=== PATIENT | female | born 1975 | race Caucasian/White ===

== ENCOUNTER → 2018-11-09 16:36 | Outpatient (CLI) | payer OTHER, SELFPAY ==
[2018-11-09 18:05] LABS: Basophil# 0.02 X10^3/uL; Basophil% 0.3 % (0-1); Eosinophil# 0.16 X10^3/uL; Eosinophils% 2.4 % (0-5); Hematocrit 36.5 % (37-47); Hemoglobin 11.5 g/dl (12.0-15.0); Lymphocyte % 27.3 % (19-41); Mean Corp Hgb Conc 31.5 g/gl (32-36); Mean Corpuscular Hgb 26.6 pg (27.0-32.0); Mean Corpuscular Volume 84.5 fL (81-99); Mean Platelet Vol. 12.2 fl (6.2-12.0); Monocyte# 0.62 X10^3/uL; Monocyte% 9.4 % (0-10); Neutrophil # 3.99 X10^3/uL (2.7-7.7); Neutrophil % 60.4 % (47-70); Platelet Count 273 K/mm3 (150-450); RBC Distribution Width CV 15.6 % (11.6-14.6); RBC Distribution Width SD 47.5 fl (35.1-43.9); Red Blood Count 4.32 M/mm3 (4.2-5.4); White Blood Count 6.6 K/mm3 (4.4-11.0)
[2018-11-09 18:11] LABS: POSITIVE COUNT NO; POSITIVE DIFFERENTIAL NO; POSITIVE MORPHOLOGY NO
[2018-11-09 18:29] LABS: Hemoglobin A1c 6.2 % (4.2-6.3)
[2018-11-09 18:38] LABS: AST(SGOT) 17 U/L (15-37); Alanine Aminotransfer ALT/SGPT 24 U/L (13-56); Albumin, Serum 3.6 g/dL (3.2-5.0); Alkaline Phosphatase 78 U/L (45-117); Anion Gap 9 (5-15); BUN 19 mg/dL (7-18); BUN/Creat Ratio 22.6 RATIO (10-20); Calcium,Total 8.5 mg/dL (8.5-10.1); Chloride 105 mmol/L (98-107); Cholesterol 200 mg/dL (200); Creatinine, Serum 0.84 mg/dL (0.55-1.02); EST Glomerular Filtration Rate 79 mL/min (>60); Est Glom Filt Rate - Afr Amer 96 mL/min (>60); Globulin 3.5 g/dL (2.2-4.2); Glucose 102 mg/dL (74-106); High Density Lipoprotein 47 mg/dL; Potassium 3.9 mmol/L (3.5-5.1); Protein, Total 7.1 g/dL (6.4-8.2); Sodium Level 139 mmol/L (136-145); Thyroid Stim Hormone (TSH) 1.47 uIU/mL (0.358-3.74); Triglycerides 210 mg/dL; Very Low Density Lipoprotein 42 mg/dL (5-40)
== END ==
LOC: MFPLAB 16:41
PROVIDERS: Family Provider Family Medicine; PCP Family Medicine; Visit Provider Family Medicine
DX: E66.01 Morbid (severe) obesity due to excess calories (principal)
CPT/HCPCS: 36415; 80053; 80061; 83036; 84443; 85025

== ENCOUNTER → 2018-11-12 15:46 | Outpatient (CLI) | payer OTHER, SELFPAY ==
[2018-11-12 17:53] LABS: Vitamin B12 253 pg/mL (211-911)
[2018-11-12 17:57] LABS: Ferritin 5 ng/mL (8-252); Iron 34 ug/dL (50-170); Iron Binding Capacity,Total 421 ug/dL (250-450)
== END ==
LOC: MFPLAB 15:47
PROVIDERS: Family Provider Family Medicine; PCP Family Medicine; Visit Provider Family Medicine
DX: D64.9 Anemia, unspecified (principal)
CPT/HCPCS: 36415; 82607; 82728; 82746; 83540; 83550

== ENCOUNTER → 2019-01-03 | Outpatient (CLI) | payer OTHER, SELFPAY ==
[2019-01-03 17:59] LABS: Absolute Lymphocyte Count 1.88 X10^3/ul (0.83-4.51); Absolute Neutrophil Count 4.6 X10^3/uL (2.0-7.7); Basophil# 0.02 X10^3/uL; Basophil% 0.3 % (0-1); Eosinophil# 0.17 X10^3/uL; Eosinophils% 2.3 % (0-5); Hematocrit 36.7 % (37-47); Hemoglobin 11.4 g/dl (12.0-15.0); Lymphocyte # 1.88 X10^3/ul (4.0); Lymphocyte % 25.8 % (19-41); Mean Corp Hgb Conc 31.1 g/gl (32-36); Mean Corpuscular Hgb 26.7 pg (27.0-32.0); Mean Corpuscular Volume 85.9 fL (81-99); Mean Platelet Vol. 11.9 fl (6.2-12.0); Monocyte# 0.62 X10^3/uL; Monocyte% 8.5 % (0-10); POSITIVE COUNT NO; POSITIVE DIFFERENTIAL NO; POSITIVE MORPHOLOGY NO; Platelet Count 283 K/mm3 (150-450); Red Blood Count 4.27 M/mm3 (4.2-5.4); White Blood Count 7.3 K/mm3 (4.4-11.0)
[2019-01-03 18:34] LABS: Ferritin 5 ng/mL (8-252); Iron 33 ug/dL (50-170); Iron Binding Capacity,Total 403 ug/dL (250-450)
== END | disposition home or self-care (01) ==
LOC: MFPLAB 16:49
PROVIDERS: Family Provider Family Medicine; PCP Family Medicine; Referring Provider Family Medicine; Visit Provider Family Medicine
DX: D64.9 Anemia, unspecified (principal); E61.1 Iron deficiency
CPT/HCPCS: 36415; 82728; 83540; 83550; 85025

== ENCOUNTER → 2019-03-21 16:56 | Outpatient (CLI) | payer OTHER, SELFPAY ==
[2019-03-21 14:17] VITALS: BMI 39.6
[2019-03-27 11:21] LABS: HPV APTIMA, High Risk Negative (Negative)
== END ==
PROVIDERS: Family Provider Family Medicine; PCP Family Medicine; Referring Provider Nurse Practitioner Women's Health; Visit Provider Nurse Practitioner Women's Health
DX: Z12.4 Encounter for screening for malignant neoplasm of cervix (principal)
CPT/HCPCS: 87624; 88175; G0145

== ENCOUNTER → 2019-03-28 | Outpatient (CLI) | payer OTHER, SELFPAY ==
[2019-03-21 14:17] VITALS: BMI 39.6
--- NOTE | 2019-03-28 16:09 | BI_ITS ---
MAMMOGRAPHY - BILATERAL SCREENING REASON FOR EXAM: Female, 43 years old. Routine annual screening examination. PERTINENT HISTORY: Grandmother with breast cancer. TECHNIQUE: Digital bilateral breast clarence (3D mammographic acquisition) in the CC and MLO projections. 2-D mediolateral oblique (MLO) and craniocaudad (CC) views of both breasts were obtained. CAD: Full Field Digital Mammography with Computer Added Detection was performed. COMPARISON: None. Baseline examination. FINDINGS: Breast Composition: The breasts are almost entirely fatty. There are no dominant masses or suspicious calcifications. Benign appearing bilateral axillary lymph nodes. No other significant abnormalities are identified. BI/SCREEN MAMM (CAD) W/CLARENCE BILAT IMPRESSION: Negative screening mammogram. Yearly followup mammogram recommended. (A) ASSESSMENT CATEGORY: BIRADS Category 2: Benign. A letter regarding these results will be sent to the patient by the facility within 30 days. Approximately 10% of breast cancers are not detected by mammography. A normal mammogram should not delay biopsy of a clinically suspicious abnormality. [id number] Electronically Signed: Isaiah Robledo, at 8:28 EDT , Service support ,
== END | disposition home or self-care (01) ==
LOC: OPBI 16:08
PROVIDERS: Family Provider Family Medicine; PCP Family Medicine; Referring Provider Nurse Practitioner Women's Health; Visit Provider Nurse Practitioner Women's Health
DX: Z12.31 Encounter for screening mammogram for malignant neoplasm of breast (principal)
CPT/HCPCS: 77063; 77067

== ENCOUNTER → 2019-04-03 | Outpatient (CLI) | payer OTHER, SELFPAY ==
[2019-03-21 14:17] VITALS: BMI 39.6
--- NOTE | 2019-04-03 16:15 | US_ITS ---
STUDY: ULTRASOUND TRANSVAGINAL CLINICAL: Female, 43 years old. Polycystic ovarian syndrome. Pelvic pain. TECHNIQUE: Transvaginal COMPARISON: None. FINDINGS: Normal uterine size measuring 9.4 x 5.8 x 4.5 cm in maximal craniocaudal dimension. There are no myometrial masses. Normal endometrial thickness measuring 6 mm. Endometrial echoes are hyperechoic. There are no endometrial masses, and there is no fluid in the endometrial cavity. Normal uterine cervix. Normal right ovary, measuring 2.9 x 3.0 x 2.0 cm. There are multiple follicles without a dominant cyst. Normal left ovary, measuring 3.1 x 1.7 x 2.4 cm. There are multiple follicles without a dominant cyst. There is no free fluid in the pelvis. No evidence for polycystic kidneys. US/Transvaginal Non- IMPRESSION: Within normal limits. Electronically Signed: Ronald Sullivan MD at 21:42 EDT , Service support ,
--- NOTE | 2019-04-03 16:15 | US_ITS ---
STUDY: ULTRASOUND TRANSVAGINAL CLINICAL: Female, 43 years old. Polycystic ovarian syndrome. Pelvic pain. TECHNIQUE: Transvaginal COMPARISON: None. FINDINGS: Normal uterine size measuring 9.4 x 5.8 x 4.5 cm in maximal craniocaudal dimension. There are no myometrial masses. Normal endometrial thickness measuring 6 mm. Endometrial echoes are hyperechoic. There are no endometrial masses, and there is no fluid in the endometrial cavity. Normal uterine cervix. Normal right ovary, measuring 2.9 x 3.0 x 2.0 cm. There are multiple follicles without a dominant cyst. Normal left ovary, measuring 3.1 x 1.7 x 2.4 cm. There are multiple follicles without a dominant cyst. There is no free fluid in the pelvis. No evidence for polycystic kidneys. US/Pelvic (Non ) IMPRESSION: Within normal limits. Electronically Signed: Ronald Sullivan MD at 21:42 EDT , Service support ,
== END | disposition home or self-care (01) ==
LOC: US 16:14
PROVIDERS: Family Provider Family Medicine; PCP Family Medicine; Referring Provider Nurse Practitioner Women's Health; Visit Provider Nurse Practitioner Women's Health
DX: N94.6 Dysmenorrhea, unspecified (principal); N92.1 Excessive and frequent menstruation with irregular cycle
CPT/HCPCS: 76830; 76856; 93976

== ENCOUNTER → 2019-04-30 | Outpatient (CLI) | payer OTHER, SELFPAY ==
[2019-03-21 14:17] VITALS: BMI 39.6
[2019-04-30 17:33] LABS: Absolute Lymphocyte Count 1.84 X10^3/uL (0.83-4.51); Absolute Neutrophil Count 3.2 X10^3/uL (2.0-7.7); Basophil# 0.03 X10^3/uL; Basophil% 0.5 % (0-1); Eosinophil# 0.17 X10^3/uL; Eosinophils% 2.9 % (0-5); Hematocrit 37.9 % (37-47); Hemoglobin 11.9 g/dL (12.0-15.0); Lymphocyte # 1.84 X10^3/ul (4.0); Lymphocyte % 31.1 % (19-41); Mean Corp Hgb Conc 31.4 g/dL (32-36); Mean Corpuscular Hgb 27.4 pg (27.0-32.0); Mean Corpuscular Volume 87.1 fL (81-99); Mean Platelet Vol. 11.9 fl (6.2-12.0); Monocyte# 0.67 X10^3/uL; Monocyte% 11.3 % (0-10); NRBC Flagged by Analyzer 0 % (0-5); Platelet Count 293 K/mm3 (150-450); RBC Distribution Width CV 14.5 % (11.6-14.6); RBC Distribution Width SD 46.7 fl (35.1-43.9); Red Blood Count 4.35 M/mm3 (4.2-5.4); White Blood Count 5.9 K/mm3 (4.4-11.0)
[2019-04-30 18:05] LABS: Vitamin B12 345 pg/mL (211-911)
[2019-04-30 18:09] LABS: AST(SGOT) 19 U/L (15-37); Alanine Aminotransfer ALT/SGPT 25 U/L (13-56); Albumin, Serum 3.6 g/dL (3.2-5.0); Alkaline Phosphatase 94 U/L (45-117); Anion Gap 6 (5-15); BUN 15 mg/dL (7-18); BUN/Creat Ratio 15.9 RATIO (10-20); Chloride 104 mmol/L (98-107); Creatinine, Serum 0.94 mg/dL (0.55-1.02); EST Glomerular Filtration Rate 69 mL/min (>60); Est Glom Filt Rate - Afr Amer 84 mL/min (>60); Ferritin 6 ng/mL (8-252); Globulin 3.7 g/dL (2.2-4.2); Glucose 85 mg/dL (74-106); Iron 37 ug/dL (50-170); Iron Binding Capacity,Total 394 ug/dL (250-450); Potassium 3.9 mmol/L (3.5-5.1); Protein, Total 7.3 g/dL (6.4-8.2); Sodium Level 138 mmol/L (136-145)
[2019-04-30 19:34] LABS: Hemoglobin A1c 5.6 % (4.2-6.3)
== END | disposition home or self-care (01) ==
LOC: MFPLAB 16:34
PROVIDERS: Family Provider Family Medicine; PCP Family Medicine; Referring Provider Family Medicine; Visit Provider Family Medicine
DX: D64.9 Anemia, unspecified (principal); E61.1 Iron deficiency; R73.02 Impaired glucose tolerance (oral); E66.9 Obesity, unspecified
CPT/HCPCS: 36415; 80053; 82607; 82728; 82746; 83036; 83540; 83550; 85025

== ENCOUNTER → 2019-10-17 | Outpatient (CLI) | payer OTHER, SELFPAY ==
[2019-10-17 13:19] VITALS: BMI 39.2
--- NOTE | 2019-10-17 14:51 | RAD_ITS ---
STUDY: X-RAY - LUMBAR SPINE REASON FOR EXAM: Female, 43 years old. CHRONIC ,LOW BACK PAIN, NO INJURY TECHNIQUE: 5 view(s) of the lumbar spine were obtained. COMPARISON: None FINDINGS: There is straightening of the normal lumbar lordosis. There is multilevel endplate spondylosis of the lumbar vertebrae. There is multi-level degenerative disc disease with multi-level disc space narrowing. The soft tissue structures are unremarkable. RAD/L/S Spine Min 4 Views IMPRESSION: Degenerative changes of the spine. Electronically Signed: Perlita Hernandez MD at 8:36 EST Tel , Service support ,
== END | disposition home or self-care (01) ==
LOC: MTRAD 14:50
PROVIDERS: PCP Family Medicine; Referring Provider Family Medicine; Visit Provider Family Medicine
DX: M54.5 Low back pain (principal)
CPT/HCPCS: 72110

== ENCOUNTER → 2019-10-31 | Outpatient (CLI) | payer OTHER, SELFPAY ==
[2019-10-17 13:19] VITALS: BMI 39.2
--- NOTE | 2019-10-31 07:52 | US_ITS ---
STUDY: ABDOMINAL ULTRASOUND - RIGHT UPPER QUADRANT REASON FOR VISIT: Female, 43 years old RUQ PAIN TECHNIQUE: Ultrasound evaluation of the right upper quadrant was performed with real-time and static canales-scale imaging. TECHNICAL QUALITY: Adequate. COMPARISON: None. FINDINGS: Liver: The liver measures 10.5 cm. There is increased echogenicity consistent with fatty infiltration. The bile ducts are within normal limits. There is hepatic color flow. The direction of portal flow is hepatopetal. There is no demonstrated mass lesion. Gallbladder: Normal distended gallbladder. The gallbladder wall measures 2.0 mm. There is a negative sonographic Rueda''s sign. There is no pericholecystic fluid. There are no gallstones. Common Bile Duct (C.B.D.): The common bile duct measures 3.0 mm. Pancreas: Normal size of the head, body of the pancreas. The tail portion is obscured due to overlying bowel gas. There is normal echogenicity of the pancreas. There is no demonstrated pancreatic mass or cyst. Right Kidney: Normal size of the right kidney. The right kidney measures 11 cm x 5.1 cm x 6.0 cm. Normal renal cortex. The right cortex measures 1.7 cm. There is no demonstrated renal mass or cyst. There is no right hydronephrosis. US/Abdomen Limited IMPRESSION: Fatty infiltration of the liver. Electronically Signed: Isaiah Robledo, at 9:22 EDT , Service support ,
[2019-10-31 09:51] LABS: Absolute Lymphocyte Count 1.35 X10^3/uL (0.83-4.51); Basophil# 0.03 X10^3/uL; Basophil% 0.4 % (0-1); Eosinophil# 0.17 X10^3/uL; Eosinophils% 2.4 % (0-5); Hematocrit 37.4 % (37-47); Hemoglobin 11.7 g/dL (12.0-15.0); Lymphocyte # 1.35 X10^3/ul (4.0); Lymphocyte % 18.9 % (19-41); Mean Corp Hgb Conc 31.3 g/dL (32-36); Mean Corpuscular Hgb 27.6 pg (27.0-32.0); Mean Corpuscular Volume 88.2 fL (81-99); Monocyte# 0.64 X10^3/uL; NRBC Flagged by Analyzer 0 % (0-5); Neutrophil # 4.95 X10^3/uL (2.7-7.7); Neutrophil % 69.2 % (47-70); Platelet Count 275 K/mm3 (150-450); RBC Distribution Width CV 14.4 % (11.6-14.6); RBC Distribution Width SD 46.3 fl (35.1-43.9); Red Blood Count 4.24 M/mm3 (4.2-5.4); White Blood Count 7.2 K/mm3 (4.4-11.0)
[2019-10-31 10:08] LABS: Vitamin B12 392 pg/mL (211-911)
[2019-10-31 10:16] LABS: Hemoglobin A1c 5.7 % (4.2-6.3)
[2019-10-31 10:25] LABS: ALB/GLOB Ratio 0.9 RATIO (0.9-2.4); AST(SGOT) 18 U/L (15-37); Alanine Aminotransfer ALT/SGPT 25 U/L (13-56); Albumin, Serum 3.5 g/dL (3.2-5.0); Alkaline Phosphatase 83 U/L (45-117); Anion Gap 5 (5-15); BUN 14 mg/dL (7-18); BUN/Creat Ratio 15.1 RATIO (10-20); Calcium,Total 8.5 mg/dL (8.5-10.1); Chloride 108 mmol/L (98-107); Creatinine, Serum 0.92 mg/dL (0.55-1.02); EST Glomerular Filtration Rate 70 mL/min (>60); Est Glom Filt Rate - Afr Amer 85 mL/min (>60); Ferritin 5 ng/mL (8-252); Glucose 96 mg/dL (74-106); Iron 26 ug/dL (50-170); Iron Binding Capacity,Total 374 ug/dL (250-450); Potassium 4.1 mmol/L (3.5-5.1); Protein, Total 7.5 g/dL (6.4-8.2); Sodium Level 138 mmol/L (136-145)
== END | disposition home or self-care (01) ==
PROVIDERS: PCP Family Medicine; Referring Provider Family Medicine; Visit Provider Family Medicine
DX: D64.9 Anemia, unspecified (principal); R73.02 Impaired glucose tolerance (oral); R10.11 Right upper quadrant pain
CPT/HCPCS: 36415; 76705; 80053; 82607; 82728; 82746; 83036; 83540; 83550; 85025

== ENCOUNTER → 2019-11-26 | Outpatient (CLI) | payer OTHER, SELFPAY ==
[2019-10-17 13:19] VITALS: BMI 39.2
--- NOTE | 2019-11-26 09:02 | CT_ITS ---
STUDY: CT ABDOMEN AND PELVIS WITH CONTRAST REASON FOR EXAM: Female, 44 years old. CHRONIC RLQ PAIN, RT OVARIAN CYSTECTOMY RADIATION DOSAGE (If Supplied By Facility): CTDIvol = ( 17.00 ) mGy, DLP = ( 1317.18 ) mGycm TECHNIQUE: Transaxial images were obtained from the dome of the diaphragm to the symphysis pubis with oral contrast. Oral and amp;amp; IV Gastrografin and amp;amp; 100mL Isovue-370 was administered. Sagittal and coronal images were reconstructed. Individualized dose optimization techniques were used for this CT. COMPARISON: None. FINDINGS: The visualized lung bases are unremarkable. The visualized portions of the heart are within normal limits. There is decreased attenuation of the liver consistent with steatosis. There is a 1 cm cyst in the posterior aspect of the right lobe of the liver. Normal gallbladder and extrahepatic biliary system. Normal spleen. Normal pancreas. Normal bilateral adrenal glands. Normal right kidney. Normal left kidney. Normal visualized stomach. Normal small intestine. Normal colon. The appendix is visualized and appears normal. Normal abdominal aorta. Normal inferior vena cava. Normal retroperitoneum. Normal urinary bladder. There is a 2.4 cm by 1.9 cm right ovarian cyst. Dominant follicle in the left ovary measuring 1.4 cm. IUD is seen within the uterus. Normal abdominal wall. Normal osseous structures. CT/Abdomen/Pelvis WITH Contrast IMPRESSION: 2.4 cm x 1.9 cm right ovarian cyst. Fatty infiltration of the liver. 1 cm cyst in the posterior aspect of the right lobe of the liver. Electronically Signed: Isaiah Robledo, at 12:46 EDT , Service support ,
[2019-11-26 09:15] LABS: Absolute Lymphocyte Count 1.76 X10^3/uL (0.83-4.51); Absolute Neutrophil Count 5.2 X10^3/uL (2.0-7.7); Basophil# 0.04 X10^3/uL; Basophil% 0.5 % (0-1); Eosinophil# 0.24 X10^3/uL; Hematocrit 38.2 % (37-47); Hemoglobin 12.1 g/dL (12.0-15.0); Lymphocyte # 1.76 X10^3/ul (4.0); Lymphocyte % 22.1 % (19-41); Mean Corp Hgb Conc 31.7 g/dL (32-36); Mean Corpuscular Hgb 27.3 pg (27.0-32.0); Mean Corpuscular Volume 86.2 fL (81-99); Mean Platelet Vol. 11.6 fl (6.2-12.0); Monocyte# 0.68 X10^3/uL; Monocyte% 8.5 % (0-10); NRBC Flagged by Analyzer 0 % (0-5); Neutrophil # 5.22 X10^3/uL (2.7-7.7); Neutrophil % 65.6 % (47-70); Platelet Count 298 K/mm3 (150-450); RBC Distribution Width CV 14.3 % (11.6-14.6); Red Blood Count 4.43 M/mm3 (4.2-5.4)
[2019-11-26 09:29] LABS: ALB/GLOB Ratio 0.9 RATIO (0.9-2.4); AST(SGOT) 17 U/L (15-37); Alanine Aminotransfer ALT/SGPT 23 U/L (13-56); Albumin, Serum 3.3 g/dL (3.2-5.0); Alkaline Phosphatase 79 U/L (45-117); Anion Gap 4 (5-15); BUN 15 mg/dL (7-18); BUN/Creat Ratio 18.3 RATIO (10-20); Calcium,Total 8.4 mg/dL (8.5-10.1); Chloride 109 mmol/L (98-107); Creatinine, Serum 0.82 mg/dL (0.55-1.02); EST Glomerular Filtration Rate 81 mL/min (>60); Est Glom Filt Rate - Afr Amer 98 mL/min (>60); Globulin 3.8 g/dL (2.2-4.2); Glucose 96 mg/dL (74-106); Protein, Total 7.1 g/dL (6.4-8.2); Sodium Level 141 mmol/L (136-145)
== END | disposition home or self-care (01) ==
PROVIDERS: PCP Family Medicine; Referring Provider Family Medicine; Visit Provider Family Medicine
DX: R19.8 Other specified symptoms and signs involving the digestive system and abdomen (principal)
CPT/HCPCS: 36415; 74177; 80053; 85025; 87086; 87088; Q9967

== ENCOUNTER → 2019-12-03 | Outpatient (CLI) | payer OTHER, SELFPAY ==
[2019-10-17 13:19] VITALS: BMI 39.2
[2019-11-28 13:40] VITALS: BMI 39.2
--- NOTE | 2019-12-03 10:01 | US_ITS ---
STUDY: ULTRASOUND OF THE FEMALE PELVIS - COMPLETE REASON FOR EXAM: Female, 44 years old. DYSMENORRHEA MENORRHAGIA IUD OCTOBER 17 2019 LMP: 10/13/2019 TECHNIQUE: Transabdominal and Transvaginal TECHNICAL QUALITY: Adequate. COMPARISON: CT 11/26/2019, ultrasound 04/03/2019 FINDINGS: The uterus is anteverted and is in a midline position. The uterus measures 9.7 x 6.4 x 4.9 cm. There is a Nabothian cyst of the cervix. The endometrium measures 6 mm in thickness, and is hyperechoic. There is no demonstrated endometrial mass. 2.5 cm isoechoic mass in the anterior body the uterus consistent with an intramural fibroid. Another 2.0 cm fibroid in the anterior body the uterus. I.U.D. - The patient does have an I.U.D. intrauterine device within the body the uterus. The right ovary is visualized. The right ovary measures 6.8 x 6.4 x 4.7 cm. 5.2 x 4.9 x 4.3 cm anechoic mass with increased transmission of the right ovary consistent with a physiologic cyst, pars ovarian cyst, cystadenoma. Follow-up ultrasound is recommended in one year. There is no visualized right adnexal mass or complex lesion. There is normal arterial and normal venous vascularity. The left ovary is visualized. The left ovary measures 3.0 x 2.1 x 2.0 cm cm. There is no left ovarian cyst or ovarian mass. There is no visualized left adnexal mass or complex lesion. There is normal arterial and normal venous vascularity. There is no fluid in the cul-de-sac. The pre void volume of the bladder was ml. The post void volume of the bladder was ml. Polycystic ovary disease: No. US/Transvaginal Non- IMPRESSION: 1. Intrauterine device within the body the uterus. 2. Small intramural fibroids. However, overall normal size of the uterus. 3. 5.2 cm cystic mass in the right ovary consistent with a physiologic cyst, parovarian cyst, cystadenoma. Follow-up ultrasound is recommended in one year. Electronically Signed: Riely Loza MD at 16:05 EDT Tel , Service support ,
--- NOTE | 2019-12-03 10:01 | US_ITS ---
STUDY: ULTRASOUND OF THE FEMALE PELVIS - COMPLETE REASON FOR EXAM: Female, 44 years old. DYSMENORRHEA MENORRHAGIA IUD OCTOBER 17 2019 LMP: 10/13/2019 TECHNIQUE: Transabdominal and Transvaginal TECHNICAL QUALITY: Adequate. COMPARISON: CT 11/26/2019, ultrasound 04/03/2019 FINDINGS: The uterus is anteverted and is in a midline position. The uterus measures 9.7 x 6.4 x 4.9 cm. There is a Nabothian cyst of the cervix. The endometrium measures 6 mm in thickness, and is hyperechoic. There is no demonstrated endometrial mass. 2.5 cm isoechoic mass in the anterior body the uterus consistent with an intramural fibroid. Another 2.0 cm fibroid in the anterior body the uterus. I.U.D. - The patient does have an I.U.D. intrauterine device within the body the uterus. The right ovary is visualized. The right ovary measures 6.8 x 6.4 x 4.7 cm. 5.2 x 4.9 x 4.3 cm anechoic mass with increased transmission of the right ovary consistent with a physiologic cyst, pars ovarian cyst, cystadenoma. Follow-up ultrasound is recommended in one year. There is no visualized right adnexal mass or complex lesion. There is normal arterial and normal venous vascularity. The left ovary is visualized. The left ovary measures 3.0 x 2.1 x 2.0 cm cm. There is no left ovarian cyst or ovarian mass. There is no visualized left adnexal mass or complex lesion. There is normal arterial and normal venous vascularity. There is no fluid in the cul-de-sac. The pre void volume of the bladder was ml. The post void volume of the bladder was ml. Polycystic ovary disease: No. US/Pelvic (Non ) IMPRESSION: 1. Intrauterine device within the body the uterus. 2. Small intramural fibroids. However, overall normal size of the uterus. 3. 5.2 cm cystic mass in the right ovary consistent with a physiologic cyst, parovarian cyst, cystadenoma. Follow-up ultrasound is recommended in one year. Electronically Signed: Riley Loza MD at 16:05 EDT Tel , Service support ,
--- NOTE | 2019-12-03 10:02 | NM_ITS ---
STUDY: HEPATOBILARY SCINTGRAPHY REASON FOR EXAM: Female, 44 years old. Abdominal pain COMPARISON STUDIES : NM - None. CR - Not available for review at this time. CT - Not available for review at this time. MR - Not available for review at this time. Ultrasound 10/31/2019 Technique: After the administration of 5.6 mCi of technetium 99m Choletec intravenously, multiple scintigraphic images of the abdomen were obtained. After the administration of 2.4 mcg of Kinevac intravenously, a gallbladder ejection fraction was capped later. Findings: Homogeneous uptake of radiopharmaceutical throughout the hepatic parenchyma. Prompt excretion into the biliary tree first seen on the 15 minute image. Prompt visualization of the gallbladder first seen on the 30 minute image. Passage of radiopharmaceutical from the biliary tree into the small bowel ensuring patency of the common bile duct. After the administration of cholecystokinin intravenously, gallbladder ejection fraction is calculated. The gallbladder ejection fraction is 42% which is slightly decreased and can be seen in gallbladder dyskinesia and chronic cholecystitis. NM/Hepatobilliary Img w/Pharm Int IMPRESSION: Possible chronic cholecystitis with a gallbladder ejection fraction of 42%. Electronically Signed: Riley Loza MD at 14:03 EDT Tel , Service support ,
== END | disposition home or self-care (01) ==
LOC: NM 10:01
PROVIDERS: PCP Family Medicine; Referring Provider Family Medicine; Visit Provider Family Medicine
DX: N83.209 Unspecified ovarian cyst, unspecified side (principal); N92.0 Excessive and frequent menstruation with regular cycle; N94.6 Dysmenorrhea, unspecified; R10.11 Right upper quadrant pain
CPT/HCPCS: 76830; 76856; 78227; A9537; J2805

== ENCOUNTER 2020-08-13 | Emergency (ER) | payer OTHER, SELFPAY ==
[2019-12-27 14:42] VITALS: BMI 39.2
[2020-08-13 00:01] VITALS: BP 146/111; PULSE 106; RESP 20; TEMP 35.8; O2SAT 96; BMI 40.7
--- NOTE | 2020-08-13 00:11 | ED.DCSUM_ITS ---
History of Present Illness Chief Complaint: Shortness of Breath Narrative: 44-year-old female presenting with cough, fever, shortness of breath. She states she had onset of symptoms last Monday which would make today day 9 of symptoms. She initially had a low-grade fever which she reported occurred on the first Monday which broke and then she also had a fever on Monday. She has loss of taste and smell, myalgias, shortness of breath, pain with deep inspiration. She states that in June she was presumptive positive and quarantined with her who tested positive. She has never been tested. Dates that her daughter was tested Past Medical History - Allergies and Home Meds Allergies/Adverse Reactions: Allergies monica Allergy (Mild, Verified 08/13/20 00:01) Unknown pineapple Allergy (Mild, Verified 08/13/20 00:01) Unknown Primary Care Physician: Pérez Benz MD [Primary Care Provider] - Prior records reviewed: Yes Past Medical History: - - Patient denies significant medical history. Surgical History: noncontributory Lives: Spouse/ Significant Other Smoking Status: Never smoker Alcohol: None Drugs: None Review of Systems General: Reports: Chills, Fever, Malaise Eyes: Denies: Visual changes - bilaterally, Diplopia ENT: Denies: Rhinorrhea, Sore throat Cardiovascular: Reports: Chest pain - Deep inspiration, Heart racing - When ambulatory Respiratory: Reports: Dyspnea, Cough, Dyspnea on exertion Gastrointestinal: Denies: Abdominal pain, Nausea Musculoskeletal: Reports: Myalgias. Denies: Arthralgias, Neck pain Skin: Denies: Rash, Abscess Neurological: Denies: Parasthesia, Numbness Psych: Denies: Depression, Anxiety Physical Exam Vital Signs/Narrative: Vital Signs Temp Pulse Resp BP Pulse Ox 08/13/20 00:01 96.5 F L 106 H 20 H 146/111 H 96 General: Well nourished, No Acute Distress Head: Normocephalic, Atraumatic Eyes: Perrl, EOMI ENT: Moist mucous membranes, No rhinorrhea Cardiovascular: Regular rate, Regular rhythm Respiratory: No distress, CTA bilaterally Extremities: Nontender, No edema Skin: Normal color, No rash Neurological: Alert, Oriented x3, Cranial nerves II-XII grossly intact Psychological: Normal affect, Normal Mood Diagnostic/Tx/Re-eval Clinical Impression(s) from Imaging Studies Chest X-Ray 08/13/20 00:23 IMPRESSION: No acute cardiopulmonary disease. Electronically Signed: Charlee Chris MD at 0:46 EST , Service support , Chest CTA 08/13/20 00:34 IMPRESSION: Negative CTA chest examination, without a demonstrated pulmonary embolism or arterial dissection. Concern for mass surrounding the right lower lobe bronchus extending to the right hilum with the right lower lobe consolidation and possible volume loss. This is concerning for neoplasm. If indicated, this can be further assessed with bronchoscopy. Lymphadenopathy within the mediastinum and right hilum. Electronically Signed: Charlee Chris MD at 1:55 EST , Service support , Laboratory Data 08/13/20 08/13/20 08/13/20 00:22 00:22 00:22 WBC 14.8 H RBC 4.11 L Hgb 12.1 Hct 37.2 MCV 90.5 MCH 29.4 MCHC 32.5 RDW Std Deviation 46.4 H RDW Coeff of Ryan 14.2 Plt Count 338 MPV 11.0 Immature Gran % (Auto) 0.500 Neut % (Auto) 79.9 H Lymph % (Auto) 11.6 L Sussex % (Auto) 5.8 Eos % (Auto) 1.9 Baso % (Auto) 0.3 Absolute Neuts (auto) 11.8 H Absolute Lymphs (auto) 1.72 Nucleated RBC % 0 Sodium 140 Potassium 3.5 Chloride 109 H Carbon Dioxide 23.0 Anion Gap 8 BUN 12 Creatinine 0.94 Estim Creat Clear Calc 80.65 Est GFR (MDRD) Af Amer 84 Est GFR (MDRD) Non-Af 69 BUN/Creatinine Ratio 12.8 Glucose 126 H Lactic Acid 1.2 Calcium 8.4 L Total Bilirubin 0.40 AST 7 L ALT 19 Alkaline Phosphatase 99 Troponin I < 0.015 Total Protein 7.3 Albumin 3.1 L Globulin 4.2 Albumin/Globulin Ratio 0.7 L Procalcitonin 08/13/20 00:22 WBC RBC Hgb Hct MCV MCH MCHC RDW Std Deviation RDW Coeff of Ryan Plt Count MPV Immature Gran % (Auto) Neut % (Auto) Lymph % (Auto) Sussex % (Auto) Eos % (Auto) Baso % (Auto) Absolute Neuts (auto) Absolute Lymphs (auto) Nucleated RBC % Sodium Potassium Chloride Carbon Dioxide Anion Gap BUN Creatinine Estim Creat Clear Calc Est GFR (MDRD) Af Amer Est GFR (MDRD) Non-Af BUN/Creatinine Ratio Glucose Lactic Acid Calcium Total Bilirubin AST ALT Alkaline Phosphatase Troponin I Total Protein Albumin Globulin Albumin/Globulin Ratio Procalcitonin 0.35 H - Rhythm Strip Rhythm Strip: Sinus Rhythm Rate: 95 - EKG Initial EKG Interpretation: Sinus Rhythm, No Acute Injury Pattern - Medical Decision Making Patient seen and evaluated on arrival for fever, chills, shortness of breath, pain with deep inspiration. Her initial set of vitals were taken after she ambulated in but after after she rests she is not tachypneic, tachycardic and not hypoxic. She is afebrile. Her EKG shows a sinus rhythm at 95 bpm without signs of ischemic change as interpreted by myself. Chest x-ray shows no acute process as interpreted by myself and the radiologist. Lab work shows a slight leukocytosis of 14.5. Electrolytes and renal function are normal. CTA does show concern for malignancy in the right lower lobe extending to the hilum as well as a reactive lymph node. This was discussed with the patient. Patient had Covid?19 PCR ordered as a send out. I was going to switch it to a rapid PCR however this was already done in the lab. Given that the patient has shortness of breath, leukocytosis and consolidation in the right lower lobe I will also cover her with azithromycin. First dose given in the ER. She states that she her inhaler will be ready until the morning so I did give her an albuterol inhaler from the ED. Patient will be given follow-up with oncology. Patient's Covid swab was negative. She was counseled that this is not a perfect test that she could possibly still have Covid?19. She was counseled she may need to stay away from elderly family members until she is completely symptom-free. Patient acknowledges understanding. She is given return precautions. She stable for discharge at this time. Impression: 1. Chest pain 2. Shortness of breath 3. Viral syndrome 4. Abnormal chest CT ED Disposition - Plan for ED Patient: Disposition: Home or Assisted Living Instructions: ED Pneumonia (Adult), ED Chest Pain, Noncardiac Prescriptions: Azithromycin 250 mg PO DAILY 4 Days #4 tab Transmission Status: Received by [id number] Referrals: Pérez Benz MD [Primary Care Provider] - Taylor Lara MD [STAFF PHYSICIAN] -
--- NOTE | 2020-08-13 00:17 | ED.RN ---
NO OLD EKGS IN MUSE
--- NOTE | 2020-08-13 00:23 | RAD_ITS ---
STUDY: X-RAY CHEST REASON FOR EXAM: Female, 44 years old. PT WITH SOB, COUGH, FEVERS X A COUPLE DAYS. TECHNIQUE: Single AP portable view of the chest. COMPARISON: None. FINDINGS: The lungs are clear and expanded. There is no demonstrated pleural abnormality. Normal size heart. Normal mediastinum and zakia. Normal visualized pulmonary arteries. Normal visualized aortic arch and descending thoracic aorta. Normal visualized thoracic spine. Normal visualized ribs, clavicles, and shoulders. There is no demonstrated abnormality of the visualized soft tissue structures of the upper abdomen. RAD/Chest 1 View (Portable) IMPRESSION: No acute cardiopulmonary disease. Electronically Signed: Charlee Chris MD at 0:46 EST , Service support ,
[2020-08-13 00:28] VITALS: O2SAT 97
[2020-08-13 00:33] LABS: Absolute Lymphocyte Count 1.72 X10^3/uL (0.83-4.51); Absolute Neutrophil Count 11.8 X10^3/uL (2.0-7.7); Basophil# 0.04 X10^3/uL; Basophil% 0.3 % (0-1); Eosinophil# 0.28 X10^3/uL; Eosinophils% 1.9 % (0-5); Hematocrit 37.2 % (37-47); Hemoglobin 12.1 g/dL (12.0-15.0); Lymphocyte # 1.72 X10^3/ul (4.0); Lymphocyte % 11.6 % (19-41); Mean Corp Hgb Conc 32.5 g/dL (32-36); Mean Corpuscular Hgb 29.4 pg (27.0-32.0); Mean Corpuscular Volume 90.5 fL (81-99); Monocyte# 0.86 X10^3/uL; Monocyte% 5.8 % (0-10); NRBC Flagged by Analyzer 0 % (0-5); Neutrophil # 11.83 X10^3/uL (2.7-7.7); Neutrophil % 79.9 % (47-70); Platelet Count 338 K/mm3 (150-450); RBC Distribution Width CV 14.2 % (11.6-14.6); RBC Distribution Width SD 46.4 fl (35.1-43.9); Red Blood Count 4.11 M/mm3 (4.2-5.4); White Blood Count 14.8 K/mm3 (4.4-11.0)
--- NOTE | 2020-08-13 00:34 | CT_ITS ---
STUDY: CTA CHEST REASON FOR EXAM: Female, 44 years old. SOB/COUGH/FEVER RADIATION DOSAGE (If Supplied By Facility): CTDIvol = ( 11.48 ) mGy, DLP = ( 534.31 ) mGycm TECHNIQUE: The examination was performed with the intravenous administration of IV 100mL Isovue-370. Post-processing of the angiographic images was performed, with multiplanar reformation and 3D reconstruction. Individualized dose optimization techniques were used for this CT. COMPARISON: None. FINDINGS: Normal enhancement of the main pulmonary artery and right and left pulmonary arteries. Normal enhancement of the bilateral peripheral pulmonary arteries. There is no demonstrated pulmonary embolism. Normal thoracic aorta and visualized great vessels. There is no demonstrated aortic dissection. Normal heart and pericardium. Large mass surrounding the right lower lobe bronchus extending to the right hilum with consolidation and volume loss within the right lower lobe. Questionable lymphadenopathy below the nickolas measuring 2.6 x 1.9 cm. This is concerning for neoplasm until proven otherwise. Right hilar lymph node measuring 1.6 x 1.5 cm. Normal visualized trachea and bronchi. The lungs are well expanded. Normal pulmonary parenchyma. Normal pleura. Normal chest wall structures. Normal osseous structures. Gender disease of thoracolumbar junction. CT/CTA Chest W/WO Contrast IMPRESSION: Negative CTA chest examination, without a demonstrated pulmonary embolism or arterial dissection. Concern for mass surrounding the right lower lobe bronchus extending to the right hilum with the right lower lobe consolidation and possible volume loss. This is concerning for neoplasm. If indicated, this can be further assessed with bronchoscopy. Lymphadenopathy within the mediastinum and right hilum. Electronically Signed: Charlee Chris MD at 1:55 EST , Service support ,
--- NOTE | 2020-08-13 00:37 | EKG12_ITS ---
Test Reason : CP/SOB Blood Pressure : / mmHG Vent. Rate : 095 BPM Atrial Rate : 095 BPM P-R Int : 124 ms QRS Dur : 088 ms QT Int : 350 ms P-R-T Axes : 035 027 028 degrees QTc Int : 439 ms Normal sinus rhythm Normal ECG Confirmed by HARINI BRAY, TIM ([id number]), publishing editor JHOAN MCKINNEY ([id number]) on 08/17/2020 9:32:50 AM Referred By: ROGERIO Confirmed By:XOCHILT SCHULER MD
[2020-08-13 00:51] VITALS: BP 127/96; PULSE 91; RESP 18; TEMP 36.8; O2SAT 95
[2020-08-13 00:52] LABS: ALB/GLOB Ratio 0.7 RATIO (0.9-2.4); AST(SGOT) 7 U/L (15-37); Alanine Aminotransfer ALT/SGPT 19 U/L (13-56); Albumin, Serum 3.1 g/dL (3.2-5.0); Alkaline Phosphatase 99 U/L (45-117); Anion Gap 8 (5-15); BUN 12 mg/dL (7-18); BUN/Creat Ratio 12.8 RATIO (10-20); Calcium,Total 8.4 mg/dL (8.5-10.1); Chloride 109 mmol/L (98-107); Creatinine, Serum 0.94 mg/dL (0.55-1.02); EST Glomerular Filtration Rate 69 mL/min (>60); Est Glom Filt Rate - Afr Amer 84 mL/min (>60); Estimated Creatinine Clearance 80.65 ml/min; Globulin 4.2 g/dL (2.2-4.2); Glucose 126 mg/dL (74-106); Potassium 3.5 mmol/L (3.5-5.1); Protein, Total 7.3 g/dL (6.4-8.2); Sodium Level 140 mmol/L (136-145)
[2020-08-13 00:57] LABS: Procalcitonin 0.35 ng/mL (0.00-0.09)
[2020-08-13 01:00] LABS: Lactic Acid 1.2 mmol/L (0.4-1.9)
[2020-08-13] MEDS: Azithromycin 250 MG Tablet 500 MG PO (02:46)
[2020-08-13 02:48] VITALS: BP 123/68; PULSE 89; RESP 16; O2SAT 97
== END 2020-08-13 02:48 | disposition home or self-care (01) ==
PROVIDERS: Emergency Provider Student in an Organized Health Care Education/Training Program; PCP Family Medicine
DX: B34.9 Viral infection, unspecified (principal); R07.9 Chest pain, unspecified; R06.02 Shortness of breath; R91.8 Other nonspecific abnormal finding of lung field
CPT/HCPCS: 71045; 71275; 80053; 83605; 84145; 84484; 85025; 87040; 87635; 93005; 99285; J7040; Q9967; A4216; U0002

== ENCOUNTER → 2020-08-21 14:16 | Outpatient (CLI) | payer OTHER, SELFPAY ==
[2020-08-13 00:01] VITALS: BMI 40.7
[2020-08-21 17:49] LABS: Hematocrit 39.1 % (37-47); Hemoglobin 12.2 g/dL (12.0-15.0); Mean Corp Hgb Conc 31.2 g/dL (32-36); Mean Corpuscular Hgb 28.6 pg (27.0-32.0); Mean Corpuscular Volume 91.8 fL (81-99); Mean Platelet Vol. 10.7 fl (6.2-12.0); Platelet Count 444 K/mm3 (150-450); RBC Distribution Width CV 13.6 % (11.6-14.6); RBC Distribution Width SD 46.1 fl (35.1-43.9); Red Blood Count 4.26 M/mm3 (4.2-5.4); White Blood Count 6.8 K/mm3 (4.4-11.0)
[2020-08-21 18:06] LABS: Erythrocyte Sedimentation Rate 49 mm/hr (0-30)
[2020-08-21 18:07] LABS: International Normalized Ratio 1.2
[2020-08-21 18:09] LABS: Partial Thromboplast Time 40.3 Seconds (24.1-36.2)
== END ==
PROVIDERS: PCP Family Medicine; Visit Provider Internal Medicine Pulmonary Disease
DX: R91.1 Solitary pulmonary nodule (principal); R05 Cough; R06.00 Dyspnea, unspecified
CPT/HCPCS: 36415; 85027; 85610; 85652; 85730; 86140

== ENCOUNTER → 2020-08-31 07:46 | Outpatient (CLI) | payer OTHER, SELFPAY ==
[2020-08-13 00:01] VITALS: BMI 40.7
--- NOTE | 2020-08-31 07:48 | CT_ITS ---
STUDY: CT CHEST WITHOUT CONTRAST REASON FOR EXAM: Female, 44 years old. LUNG MASS RADIATION DOSAGE (If Supplied By Facility): CTDIvol = ( 20.14 ) mGy, DLP = ( 724.86 ) mGycm TECHNIQUE: Transaxial imaging was performed without the administration of intravenous contrast material. Multiplanar coronal and sagittal images were reformatted. Individualized dose optimization techniques were used for this CT. COMPARISON: Comparison is made with prior study dated 08/13/2020. FINDINGS: The previously seen mass/consolidation in the posterior medial segment of the right lower lobe has resolved. Minimal residual changes persist in the right infrahilar region suggestive of scarring. There is no demonstrated pleural abnormality. Normal heart and pericardium. There are multiple small lymph nodes within the mediastinum, which are normal in size and morphology most compatible with reactive lymph hyperplasia. Normal hilar regions. Normal unenhanced pulmonary arteries. Normal aorta arch and descending thoracic aorta. There are degenerative changes of the thoracic spine. There is no demonstrated abnormality of the visualized upper abdomen. CT/Chest without Contrast IMPRESSION: The previously seen mass/consolidation in the posterior medial segment of the right lower lobe has resolved. Minimal residual changes persist in the right infrahilar region. Electronically Signed: Isaiah Robledo MD at 8:42 EST , Service support ,
== END ==
LOC: CT 07:47
PROVIDERS: PCP Family Medicine; Referring Provider Internal Medicine Pulmonary Disease; Visit Provider Internal Medicine Pulmonary Disease
DX: R91.8 Other nonspecific abnormal finding of lung field (principal)
CPT/HCPCS: 71250

== ENCOUNTER → 2020-10-21 10:24 | Outpatient (CLI) | payer OTHER, SELFPAY | PROVIDERS: PCP Family Medicine; Referring Provider Family Medicine; Visit Provider Internal Medicine Pulmonary Disease | DX: Z53.9 Procedure and treatment not carried out, unspecified reason (principal) ==

== ENCOUNTER → 2020-11-06 15:53 | Outpatient (CLI) | payer OTHER, SELFPAY ==
[2020-10-28 15:48] VITALS: BMI 41.5
[2020-11-06 18:00] LABS: BUN 14 mg/dL (7-18); Creatinine, Serum 0.82 mg/dL (0.55-1.02); EST Glomerular Filtration Rate 81 mL/min (>60); Est Glom Filt Rate - Afr Amer 98 mL/min (>60)
== END ==
PROVIDERS: PCP Family Medicine; Referring Provider Family Medicine; Visit Provider Internal Medicine Pulmonary Disease
DX: R07.9 Chest pain, unspecified (principal); R91.8 Other nonspecific abnormal finding of lung field; R05 Cough
CPT/HCPCS: 36415; 82565; 84520

== ENCOUNTER → 2020-11-10 14:53 | Outpatient (CLI) | payer OTHER, SELFPAY ==
[2020-10-28 15:48] VITALS: BMI 41.5
--- NOTE | 2020-11-10 14:57 | CT_ITS ---
INDICATION: COUGH,DYSPNEA,ABN LUNG FIELD EXAMINATION: CT Chest W/ Contrast Injection TECHNIQUE: Helically acquired images were obtained of the chest following IV contrast. A radiation dose optimization technique was used for this scan. IV Contrast dosage and agent: 100 cc [id number] COMPARISON: 08/31/2020. FINDINGS: Lungs: Lingular atelectasis. Very few scattered areas of groundglass opacities in the lung bases bilaterally. Mediastinum: The cardiomediastinal silhouette is not enlarged. No mediastinal, hilar or axillary adenopathy. The thoracic aorta is unremarkable. No obvious filling defect seen within the visualized pulmonary arteries. Pleura: Unremarkable Bones/Soft tissues: No suspicious osseous or soft tissue lesions Upper abdomen: 5 mm right adrenal nodule measuring less than [address]/Chest WITH Contrast IMPRESSION: Minimal scattered areas of groundglass opacities in the lung bases bilaterally could be infectious or inflammatory in etiology. 5 mm right adrenal adenoma. Electronically Signed: Héctor Estrada MD at 21:17 EDT Tel , Service support ,
== END ==
PROVIDERS: PCP Family Medicine; Referring Provider Internal Medicine Pulmonary Disease; Visit Provider Internal Medicine Pulmonary Disease
DX: R06.00 Dyspnea, unspecified (principal); R05 Cough
CPT/HCPCS: 71260; Q9967

== ENCOUNTER → 2022-12-22 | Outpatient (CLI) | payer OTHER, SELFPAY | END | disposition home or self-care (01) | PROVIDERS: PCP Family Medicine; Referring Provider Nurse Practitioner Family; Visit Provider Nurse Practitioner Family | DX: J02.9 Acute pharyngitis, unspecified (principal) | CPT/HCPCS: 87070 ==

== ENCOUNTER 2023-02-13 14:39 | Emergency (ER) | payer OTHER, SELFPAY ==
[2023-02-13 14:39] VITALS: BP 164/89; PULSE 72; RESP 18; TEMP 36.4; O2SAT 97
[2023-02-13 14:46] VITALS: BMI 42.3
--- NOTE | 2023-02-13 15:04 | EDS_ITS ---
HPI History of Present Illness HPI Narrative: Patient presents with medial right ankle pain. Yesterday patient was standing up trying to get a muck boot off of her right foot. She was using the left to push down on the heel of the boot. She states somehow her leg was coming out of the boot but the foot did not and she got pain and a popping sensation on the medial heel. She did not actually fall to the ground. It sounds like she did not actually rolled this ankle or land on it. It was more a pulling process that caused the pain. No pain more proximally. No swelling. No chest pain or trouble breathing. Sounds like she has not been on steroids or fluoroquinolones recently. Chief Complaint: Lower Extremity Injury Informant: patient 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) h/o covid PCOS (polycystic ovarian syndrome) Home Medications naproxen 500 mg-esomeprazole 20 mg tablet,immediate and delay release 1 ea PO PRN PRN Pain 1-10 Or Fever 08/13/20 [History Last Taken Unknown] albuterol sulfate 90 mcg/actuation aerosol inhaler 1 - 2 puff inhalation Q4H PRN PRN Sob &/Or Wheezing 08/25/20 [History Last Taken Unknown] levonorgestrel 20.4 mcg/24 hrs (8 yrs) 52 mg intrauterine device (Liletta) 1 device intrauterine ONCE 10/28/20 [History Last Taken Unknown] Allergy/AdvReac Type Severity Reaction Status Date / Time monica Allergy Mild Unknown Verified 02/13/23 14:39 pineapple Allergy Mild Unknown Verified 02/13/23 14:39 Family History Mother Heart disease Diabetes Breast cancer Grandmother Hypertension Parkinsons disease Father Diabetes Heart disease Glaucoma Surgical History delivery delivered History of ovarian cystectomy Social History number of children: 1 current occupational status: employed current occupation: [employer] Smoking Status: Never smoker alcohol intake: current alcohol intake frequency: holidays/special occasions only substance use type: does not use diet: low carbohydrate caffeine: Yes Type: coffee Number of servings: 1 seatbelt use: always do you feel safe at home: Yes additional social history: [employer] ROS ROS ED Respiratory/Chest Respiratory/Chest: Denies cough or dyspnea Gastrointestinal Gastrointestinal: Denies nausea or vomiting Musculoskeletal Musculoskeletal: Reports arthralgias; Denies back pain, myalgias or neck pain Integumentary Denies Abrasions or rash Neurologic Neurologic: Denies paresthesias or weakness Hematologic/Lymphatic Hematologic/Lymphatic: Denies easy bleeding or easy bruising EXAM Physical Exam Narrative Exam Narrative: Patient awake alert no acute distress laying comfortably in bed. HEENT shows no trauma. Cardiorespiratory shows easy unlabored breathing with normal saturations at 97% on room air showing no hypoxia. Skin shows no rashes or pallor. No diaphoresis. Extremity shows no swelling at this time. No ecchymosis is yet developed. She has tenderness diffusely around the medial malleolus. No tenderness in the midfoot forefoot or fifth metatarsal. Calcaneus is not tender with compression. She has a nontender and palpable Achilles and negative Han test. There is no tenderness or swelling up the leg. No distended veins or cord. She has pain with stress of the medial ligaments but no obvious laxity. Const Vital Signs: 02/13/23 14:39 Temperature 97.5 F L Temperature Source Temporal Pulse Rate 72 Respiratory Rate 18 Blood Pressure 164/89 H Blood Pressure Mean 114 Pulse Ox 97 Oxygen Delivery Method Room Air MDM MDM MDM Narrative Medical decision making narrative: My independent interpretation of the patient's three-view right ankle x-ray shows some mild arthritic changes but no fracture. The visualized portions of the fifth metatarsal or are also normal. Final reading is soft tissue swelling and plantar spur. Radiography Diagnostic Testing: Clinical Impression(s) from Imaging Studies Ankle X-Ray 02/13/23 15:10 IMPRESSION: Soft tissue swelling. Plantar spur. Electronically Signed: Isaiah Robledo MD at 15:23 EDT , Discharge Plan Triage Chief Complaint: Lower Extremity Injury ED Provider: Alvino Bowen Dx/Rx/DC Orders Clinical Impression: Sprain of ligament of right ankle Instructions: ED Ankle Sprain (Adult) Prescriptions: No Action Liletta 20.1 mcg/24 hrs (6 yrs) 52 mg intrauterine device 1 device INTRA-UTER ONCE Rx Instructions: as a single dose naproxen-esomeprazole 1 EACH tablet,IR,delayed rel,biphasic 1 ea PO PRN PRN (Reason: Pain 1-10 Or Fever) albuterol sulfate 1 PUFF inhaler 1 - 2 puff INHALATION Q4H PRN PRN (Reason: Sob &/Or Wheezing) Primary Care Provider: Pérez Benz Referrals: Pérez Benz MD [Primary Care Provider] - 10-14 Days if not better Disposition Disposition: Home, Self Care
--- NOTE | 2023-02-13 15:10 | RAD_ITS ---
STUDY: X-RAY - RIGHT ANKLE REASON FOR EXAM: Female, 47 years old. Trauma, Pain TECHNIQUE: 3 view(s) of the ankle. COMPARISON: None. FINDINGS: Normal visualized distal tibia and fibula. Normal medial and lateral malleoli. Normal tibiotalar articulation and ankle mortise. Plantar spur. The visualized subtalar, talonavicular, calcaneocuboid and tarsal articulations are normal. Soft tissue swelling. RAD/Ankle min 3 Views IMPRESSION: Soft tissue swelling. Plantar spur. Electronically Signed: Isaiah Robledo MD at 15:23 EDT ,
[2023-02-13 15:58] VITALS: RESP 17
== END 2023-02-13 16:00 | disposition home or self-care (01) ==
PROVIDERS: Emergency Provider Emergency Medicine; PCP Family Medicine; Visit Provider Emergency Medicine
DX: S93.401A Sprain of unspecified ligament of right ankle, initial encounter (principal); M19.071 Primary osteoarthritis, right ankle and foot; X50.0XXA Overexertion from strenuous movement or load, initial encounter
CPT/HCPCS: 73610; 99283

== ENCOUNTER 2024-06-08 14:41 | Emergency (ER) | payer OTHER, SELFPAY ==
[2024-06-08 14:42] VITALS: BP 163/109; PULSE 77; RESP 18; TEMP 36.1; O2SAT 98; BMI 42.0
--- NOTE | 2024-06-08 14:51 | CT_ITS ---
STUDY: CT BRAIN WITHOUT CONTRAST REASON FOR EXAM: Female, 48 years old. Headache RADIATION DOSAGE (If Supplied By Facility): CTDIvol = ( 44.99 ) mGy, DLP = ( 779.24 ) mGycm TECHNIQUE: Transaxial CT imaging of the brain was performed without administration of intravenous contrast material. Individualized dose optimization techniques were used for this CT. COMPARISON: No relevant priors. FINDINGS: Normal soft tissue structures. Normal calvarium. Normal size ventricles and extra-axial spaces for the patient''s age. Normal white matter tracts of the cerebral hemispheres. Normal basal ganglia and thalami. Normal brainstem. Normal cerebellum. There is no intracranial hemorrhage. There are no findings of an acute ischemic infarction. Normal visualized paranasal sinuses. CT/Brain/Head without Contrast IMPRESSION: Normal unenhanced CT scan of the brain. Electronically Signed: Gustavo Jc MD at 15:47 EDT ,
--- NOTE | 2024-06-08 14:53 | EDS_ITS ---
HPI History of Present Illness Chief Complaint: Headache Informant: patient Onset/Context/Timing Onset: Yesterday Context: Gradual Timing: Continuous Quality -Headache: Positive for Sharp and Throbbing Current Severity: Moderate Maximum Severity: Moderate Associated Symptoms/Injury Associated Symptoms: Positive for Nausea; Negative for Fever or Vomiting Injury - RIDLEY: Positive for Fall; Negative for Direct Trauma Narrative Narrative: 48-year-old female past medical history of ocular migraines. States she fell earlier in the week but does not believe that she hit her head. No LOC. Said last night around 5 PM she is start getting gradual onset of headaches. She states that sharp shooting pains throughout her head. She is on no blood thinners. Denies any fever. No sinus congestion or drainage. She has had mi graines before but that this feels different. No history of intracranial bleeds or brain surgery. No family history of intracranial bleeds or aneurysms. She denies any neck pain or fever. She has had some mild nausea no vomiting. Bright light and sound bothers her with a headache. She denies any weakness in her upper or lower extremities. No numbness or tingling. Prior similar symptoms: No Recent Illness/Hospitalization: No PFSH PFS Medical History autoimmune inflammatory lung disease h/o covid Folic acid deficiency (non anemic) PCOS (polycystic ovarian syndrome) Home Medications ?Medication ?Instructions ?Recorded ?Last Taken ?Type naproxen 500 mg-esomeprazole 20 mg 1 ea PO PRN PRN Pain 1-10 Or Fever 08/13/20 Unknown History tablet,immediate and delay release albuterol sulfate 90 mcg/actuation 1 - 2 puff inhalation Q4H PRN PRN 08/25/20 Unknown History aerosol inhaler Sob &/Or Wheezing levonorgestrel 20.4 mcg/24 hr (up 1 device intrauterine ONCE 10/28/20 Unknown History to 8 yrs) 52 mg intrauterine device (Liletta) Allergy/AdvReac Type Severity Reaction Status Date / Time monica Allergy Mild Unknown Verified 06/08/24 14:42 pineapple Allergy Mild Unknown Verified 06/08/24 14:42 Family History Mother Heart disease Diabetes Breast cancer Grandmother Hypertension Parkinsons disease Father Diabetes Heart disease Glaucoma Surgical History delivery delivered History of ovarian cystectomy Social History number of children: 1 current occupational status: employed current occupation: [employer] Smoking Status: Never smoker alcohol intake: current alcohol intake frequency: holidays/special occasions only substance use type: does not use diet: low carbohydrate caffeine: Yes Type: coffee Number of servings: 1 seatbelt use: always do you feel safe at home: Yes additional social history: [employer] Writing ROS ROS ED ROS Narrative Headache. No recent illness. Constitutional Constitutional ED: Denies chills or fever(s) Eyes Eyes: Denies blurry vision ENT ENT ED: Denies ear pain Cardiovascular Cardiovascular: Denies chest pain Respiratory/Chest Respiratory/Chest: Denies cough Gastrointestinal Gastrointestinal: Reports nausea; Denies abdominal pain, constipation, diarrhea or vomiting Genitourinary Genitourinary ED: Denies dysuria or hematuria Musculoskeletal Musculoskeletal: Denies arthralgias or back pain Integumentary Denies abscess Neurologic Neurologic: Reports headache(s) Psychiatric Psychiatric: Denies anxiety or depression Endocrine Endocrinology: Denies polydipsia, polyphagia or polyuria Hematologic/Lymphatic Hematologic/Lymphatic: Denies easy bleeding, easy bruising or lymphadenopathy Allergic/Immunologic Allergic/Immunologic ED: Denies mouth swelling, tongue swelling or urticaria EXAM Physical Exam Narrative Exam Narrative: 48-year-old female. Vital signs are stable afebrile. She does not look septic toxic or in distress. Sit in a darkened room. Significant other at bedside. H EENT exam pupils round reactive light. Extra motions are intact. No signs of trauma to her face or scalp. Nontender no hematoma. No facial droop. Normal speech. Sinuses are nontender. Neck nontender no meningismus. No lymphadenopathy. Able to touch her chin to chest. Lungs clear to auscultation. Heart regular rhythm rate about 75 no murmur. Chest wall ribs nontender. Abdomen soft nontender. Back nontender. Moving all 4 extremities. 5 out of 5 pass worker strength. Dorsi plantarflexion intact. Neurologic exam normal. NIH 0. Fingertip to nose [id number] within normal limits. Awake and alert. Answer questions following commands. Const Vital Signs: 06/08/24 14:42 Temperature 96.9 F L Temperature Source Temporal Pulse Rate 77 Respiratory Rate 18 Blood Pressure 163/109 H Blood Pressure Mean 127 Pulse Ox 98 Oxygen Delivery Method Room Air Positive well nourished and well developed; Negative for cachectic, contractures or unkempt General Appearance ED: well developed and NAD; Negative for unkempt, cachectic, contractures, cyanotic or diaphoretic Nutritional Appearance: Negative for cachectic HEENT Reports normocephalic and moist mucous membranes; Denies dry mucous membranes atraumatic; Negative for trauma, tenderness, temporal artery tenderness or vesicular rash Face and Sinus: Negative for sinus tenderness Mouth ED: No dry mucous membranes Mouth: No dry mucous membranes Eyes PERRL and EOMs intact bilaterally General Eye ED: Negative for pale conjunctiva or scleral icterus Neck no lymphadenopathy, supple, no meningeal signs and no JVD General: Negative for tenderness or other Resp normal respiratory effort and clear to auscultation bilaterally Effort and Inspection: Negative for retractions Auscultation: Negative for rales, rhonchi, wheezes or diminished lung sounds Cardio regular rate, regular rhythm, S1 normal heart sound, S2 normal heart sound and no murmurs Rate: Negative for bradycardia or tachycardic Rhythm: Negative for abnormal rhythm GI non-tender and non-distended Auscultation: normoactive bowel sounds Palpation: soft; Negative for firm, tender or guarding Back/Spine no CVA tenderness General Back: Negative for CVA tenderness or tenderness Cervical Spine: Negative for cervical spine tenderness Thoracic Spine / Upper Back: Negative for thoracic spinal tenderness Lumbar Spine / Lower Back: Negative for lumbar spinal tenderness Extremity normal to inspection and full ROM General Extremety ED: Negative for edema or tenderness General Extremity: Negative for edema Neuro oriented x3 and CN's II-XII intact bilaterally Neuro Narrative: Neurologic exam normal. NIH 0. Sensorium / Orientation: awake, alert, oriented to person, oriented to place and oriented to time; Negative for orientation impaired, lethargic or stuporous Coordination / Balance: [id number] test normal and [id number] test normal Speech: speech normal Motor Exam: strength 5/5 throughout Psych mental status grossly normal Appearance: Negative for unkempt Attitude: No agitated Mood & Affect: Negative for depressed, anxious or tearful Skin Lesions: no lesions Rashes: no rashes MDM MDM MDM Narrative Medical decision making narrative: 48-year-old female with a headache. History of ocular migraines. States this is different. Her exam is normal. Her neurologic exam is normal. She will be treated as a migraine with Toradol, Benadryl, Compazine IV fluids and reassess. I am obtain a CAT scan of her head. She had some recent fall but I do not believe there is any signs of head trauma at this time. Repeat exam patient is doing well at 3:35 PM. Starting to get some relief from the medications for her headache. Neurologic exam remains normal. I did review her CAT scan I do not see any acute process. I do not see any bleed or mass. I do not see any sinus infection. Awaiting the formal CAT scan read. Patient will be checked out to the afternoon physician. I will check the CAT scan results and reevaluate the patient. At this time I think she will be fine to be discharged to home. Discharge Plan Triage Chief Complaint: Headache ED Provider: Otoniel Lopez Dx/Rx/DC Orders Clinical Impression: Headache Instructions: ED Headache Unspecified Prescriptions: No Action Liletta 20.1 mcg/24 hrs (6 yrs) 52 mg intrauterine device 1 device INTRA-UTER ONCE Rx Instructions: as a single dose naproxen-esomeprazole 1 EACH tablet,IR,delayed rel,biphasic 1 ea PO PRN PRN (Reason: Pain 1-10 Or Fever) albuterol sulfate 1 PUFF inhaler 1 - 2 puff INHALATION Q4H PRN PRN (Reason: Sob &/Or Wheezing) Primary Care Provider: Pérez Benz Referrals: Pérez Benz MD [Primary Care Provider] - As Needed Activity Restrictions/Additional Instructions: Plenty of fluids and rest. Alternate Tylenol and Motrin for pain. Follow-up with your doctor or the doctor I referred you to if not improving. Return if feeling a lot worse. Print Language: Russian Disposition Disposition: Home, Self Care
[2024-06-08] MEDS: Ketorolac 30 MG/ML Syringe IV (15:12)
[2024-06-08] MEDS: 0.9% Normal Saline (500mL Bag) 500 ML 1000 ML IV (15:12)
[2024-06-08] MEDS: proCHLORPERazine 10 MG/2 ML Vial IV (15:13)
[2024-06-08] MEDS: DiphenhydrAMINE 50 MG/ML Syringe IV (15:14)
== END 2024-06-08 16:16 | disposition home or self-care (01) ==
PROVIDERS: Emergency Provider Emergency Medicine; PCP Family Medicine; Visit Provider Emergency Medicine
DX: R51.9 Headache, unspecified (principal); R11.0 Nausea; E28.2 Polycystic ovarian syndrome
CPT/HCPCS: 70450; 96361; 96374; 96375; 99283; J7040; A4216